=== PATIENT | female | born 1970 | race Caucasian/White ===

== ENCOUNTER 2023-11-12 12:59 | Emergency (ER) | payer SELFPAY ==
[~2023-11-12] VITALS: Ht 165.1 cm; Wt 73.5 kg
[~2023-11-12 12:59] MED LIST: ACET-10509 PO; ACET-5629 PO; CIPR500T4 PO; METR-435 PO; ONDA4ODT2 PO
[2023-11-12 13:37] VITALS: BP 134/76; PULSE 77; RESP 16; TEMP 98.7; O2SAT 97
[2023-11-12] MEDS ORDERED: LIDOCAINE MPF 1% 10 MG/ML VIAL INJ ONE (14:10)
[2023-11-12] MEDS ORDERED: CEPH-588 PO (14:50)
== END 2023-11-12 15:07 | disposition home or self-care (01) ==
LOC: MED 12:59
DX: N75.0 Cyst of Bartholin's gland (principal); Z79.899 Other long term (current) drug therapy
CPT/HCPCS: 56405; 99284; J2001